=== PATIENT | male | born 1970 | race Caucasian/White ===

== ENCOUNTER 2024-04-13 06:21 | Day surgery (SDC) | payer OTHER, SELFPAY ==
[2024-04-13 00:08] VITALS: BP 144/78
[2024-04-13] MEDS: GlucaGen 1 MG IV ×2 (00:27→01:12)
[2024-04-13] MEDS: PROTONIX IV 40 MG IV (00:27)
[2024-04-13] MEDS: NSS 1000 IV (00:28)
[2024-04-13 00:36] VITALS: BMI 24.1
--- NOTE | 2024-04-13 01:20 | ED.GENMED ---
History of Present Illness
General
Chief Complaint: Throat Problem
Source: patient
Time Seen by Provider: 04/13/24 00:43
History of Present Illness
History of Present Illness:
54-year-old male presents stating that he may have a piece of chicken stuck in his throat. He was eating chicken for dinner at 6 PM and felt it got lodged. He has had this happen before but it seems to resolve on its own typically. He has been
unable to swallow anything for the past 6 hours. He states he has been spitting in a bag. He denies chest pain abdominal pain or shortness of breath. He does not take any medications.
Phy Exam
Physical Exam
Physical Exam:
General: Well-appearing male no acute respiratory distress
HEENT: Normocephalic atraumatic
Heart: Regular rate and rhythm
Lungs: Clear no wheeze or stridor
Course
Orders/Labs/Results
Orders:
Orders
04/13/24 00:24
Glucagon [GlucaGen] 1 mg .ROUTE .STK-MED ONE
Pantoprazole [Protonix IV] 40 mg .ROUTE .STK-MED ONE
04/13/24 00:26
0.9% Sodium Chloride 1000 ml [Nss] 1,000 ml IV BOLUS
Glucagon [GlucaGen] 1 mg IV NOW STA
04/13/24 00:27
Pantoprazole [Protonix IV] 40 mg IV NOW STA
04/13/24 00:58
Glucagon [GlucaGen] 1 mg IV NOW STA
04/13/24 05:26
Glycopyrrolate [Robinul] 0.2 mg .ROUTE .STK-MED ONE
Rocuronium [place] [Rocuronium] 50 mg .ROUTE .STK-MED ONE
Sugammadex Sodium [Bridion] 200 mg .ROUTE .STK-MED ONE
ePHEDrine SULFATE [Emerphed] 50 mg .ROUTE .STK-MED ONE
04/13/24 05:27
Phenylephrine HCl/0.9% NaCl [Donta-Synephrine] 1,000 mcg .ROUTE .STK-MED ONE
Propofol [Diprivan] 40 ml .ROUTE .STK-MED
Succinylcholine Chloride [Succinylcholine] 200 mg .ROUTE .STK-MED ONE
04/13/24 05:28
Lidocaine 2% Mpf [Xylocaine Mpf 2%] 100 mg .ROUTE .STK-MED ONE
04/13/24 06:56
Activity As Directed
Activity Level: Bedrest
Comment: bedrest until awake & alert then resume previous activity level
Vital Signs As Directed
Frequency: Post-operative guidelines
Vital Signs
Initial and Last Documented VS:
Initial Vital Signs
Temp Pulse Resp BP Pulse Ox
97.8 F 68 20 144/78 98
04/13/24 00:08 04/13/24 00:08 04/13/24 00:08 04/13/24 00:08 04/13/24 00:08
Last Documented Vital Signs
Temp Pulse Resp BP Pulse Ox
97.8 F 76 16 142/85 100
04/13/24 00:08 04/13/24 06:02 04/13/24 06:02 04/13/24 06:02 04/13/24 06:02
MDM/Problems Addressed
Differential Diagnosis Includes:
Potential esophageal food bolus. Patient did receive a dose of glucagon. On my exam he is not spitting into a cup. Will try oral challenge if unsuccessful consider repeat dose of glucagon or GI consultation.
*Critical Care Note
Total Time (30-74mins, 75-104mins- exclusive of procedures): Not Applicable
Update Note
Update Note:
Initial dose of glucagon unsuccessful. Tried another 1. Patient still unable to tolerate water and spitting into a cup. Contacted gastroenterology. Patient likely needs endoscopy for esophageal food bolus
GI taking patient for endoscopy around 5
ED Attending Note
-
Portions of this chart may have been created with voice recognition software.� Occasional wrong word or��sound alike� substitutions may have occurred due to the inherent limitations of voice recognition software.
Discharge Plan
Departure
Patient Disposition: GI LAB
Date of Disposition: 04/13/24
Time of Disposition: 01:35
Presentation/result/management discussed w/ accepting MD/DO: GI
Discharge Problem:
Food impaction of esophagus
Interventions
Interventions:
*Risk Screen - Suicide Last Done: 04/13/24 00:08
*General Assessment Last Done: 04/13/24 00:36
*Neglect/Abuse Screening Last Done: 04/13/24 00:08
ED- Fall Risk Assessment Last Done: 04/13/24 00:39
*ED COVID-19 Vaccine History Last Done: 04/13/24 00:36
*Nursing Disposition Last Done: 04/13/24 07:04
ED-EENT Assessment Last Done: 04/13/24 00:39
ED- Pulmonary Assessment Last Done: 04/13/24 00:39
Discharge Date and Time
Discharge Date/Time: 04/13/24 07:05
--- NOTE | 2024-04-13 01:31 | EDRN ---
Patient attempted water which did not go down, PRAKASH Joyner aware
--- NOTE | 2024-04-13 03:01 | EDRN ---
Updated patient on when GI is coming in
[2024-04-13 06:02] VITALS: BP 142/85
--- NOTE | 2024-04-13 06:29 | CON.GI ---
Consultation
-
Date/Time Consultation Requested: 04/13/24
Date/Time Consultation Performed: 04/13/24
Requesting Provider: Ling RANDALL
Performing Provider:
Reason for Consultation: Food bolus
Medical History
Chief Complaint / HPI
Chief Complaint: food impaction
History of Present Illness:
Mr. Landry is a very pleasant 54-year-old male with past medical history of Joe syndrome presented to the emergency with food bolus impaction. He says that he was having dinner around 6:00 PM and had eaten chicken and potatoes and after he almost
the entire meal he felt that a piece of the chicken was stuck towards the end of the meal and he was unable to bring it up and presented to the emergency room. He was unable to swallow secretions after that. He has had intermittent episodes of
dysphagia to some solids especially bread and meat for the past 5 years and had an episode in the past where he felt that the food was stuck but was able to usually bring it up within 20 minutes or so or it passes. He has never had an endoscopy in
the past he had a colonoscopy over 30 years ago for symptoms of IBS and was told was normal. Denies any symptoms of reflux. bowel movements are pretty regular no diarrhea or constipation no rectal bleeding or melena.
Past Medical History
Past Medical History: Other (joe syndrome, IBS)
Past Surgical History: Other (eye surgery/lasik, knee surgery)
Social History
Tobacco: Non-Smoker
Alcohol: Occasional
Drug: None
Personal:
Employment: Other (teacher)
Family History
Family History: Reviewed & Not Pertinent
Allergies / Home Medications
Allergy/AdvReac Type Severity Reaction Status Date / Time
Penicillins Allergy Unknown Verified 04/13/24 00:10
Review of Systems
-
All other systems: A 12 pt ROS was Negative except as stated above in HPI
Vital Signs
Temp Pulse Resp BP Pulse Ox
97.8 F 76 16 142/85 100
04/13/24 00:08 04/13/24 06:02 04/13/24 06:02 04/13/24 06:02 04/13/24 06:02
Physical Exam
Exam
General: No Apparent Distress
HEENT: Normocephalic
Respiratory: Clear
Cardiac: S1/S2 and Regular Rhythm
GI: Soft, Non Tender, Non Distended and Normal Bowel Sounds
Musculoskeletal: No Clubbing
Skin: Warm
Neuro: AO x 3
Psych: Calm
Results
Diagnostic Image Results:
Prior GI Procedures:
EGD: none
Colonoscopy: 30 years ago
Assessment / Plan
-
Food bolus impaction after eating dinner around 6 PM last night feels that a piece of chicken is stuck and was unable to pass it and is unable to swallow secretions overnight despite receiving 2 doses of glucagon in the ER. Will schedule him for an
endoscopy with removal of the food bolus and if he does have evidence of stricture or ring will also do dilatation. As described above he has been having intermittent episodes of dysphagia to some solids over the past 5 years. Denies any symptoms
of reflux. He will also need an eventual screening colonoscopy as outpatient.
-
-
Thank you for consultation and allowing me to participate in the patient's care. Please call the homemaking rehabilitation consultant GI physician during the after hours with any questions or concerns.
== END 2024-04-13 07:44 | disposition home or self-care (01) ==
LOC: GI 06:21
PROVIDERS: ATTENDING PHYSICIAN Internal Medicine Gastroenterology; EMERGENCY PHYSICIAN Emergency Medicine
DX: K22.2 Esophageal obstruction (principal); T18.2XXA Foreign body in stomach, initial encounter; T18.128A Food in esophagus causing other injury, initial encounter; W44.F3XA Food entering into or through a natural orifice, initial encounter; R13.14 Dysphagia, pharyngoesophageal phase; K44.9 Diaphragmatic hernia without obstruction or gangrene; K20.90 Esophagitis, unspecified without bleeding; K31.89 Other diseases of stomach and duodenum
CPT/HCPCS: 43247; 96361; 96374; 96375; 96376; 99285; J1610